=== PATIENT | female | born 2000 | race Caucasian/White ===

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

== ENCOUNTER 2023-08-30 22:24 | Emergency (ER) | payer OTHER, MEDICAID ==
[2023-08-30] MEDS ORDERED: Albuterol 2.5 MG (3 mL) NEB ONE (23:00)
[2023-08-30] MEDS ORDERED: Famotidine 20 MG TAB ONE (23:00)
[2023-08-30] MEDS ORDERED: Mag-Al Plus 1200/1200/120 MG (30 mL) UDCUP ONE ×2 (23:01)
[2023-08-30] MEDS ORDERED: Lidocaine 2% Viscous 100 ML BOTTLE ONE (23:02)
[2023-08-30 23:10] LABS: Bilirubin Negative (Negative); Blood, Urine Negative (Negative); CAUTI Indications for Culture Dysuria,urgency,freq; Clarity Clear (Clear); Glucose, Urine (Dipstick) Negative (Negative); Ketone, Urine Negative (Negative); Leukocyte Negative (Negative); Nitrite Negative (Negative); Protein, Urine (Dipstick) Negative (Neg-Trace); RBC/HPF None Seen HPF (0-3); Specific Gravity, Urine 1.025 (1.005-1.030); Urobilinogen 0.2 mg/dL (Less than 2)
[2023-08-30] MEDS ORDERED: predniSONE 20 MG TAB ONE (23:10)
[2023-08-30 23:11] LABS: Urine Culture Reflex No No
[2023-08-30 23:12] LABS: Pregnancy Test - Urine (BHCG) Negative (Negative); Pregu Control Background? CLEAR/WHITE (CLR/WHITE); Pregu Control Bar Appear? YES (CONTROL BAR); Specific Gravity 1.025 (1.002-1.036)
== END 2023-08-30 23:57 | disposition home or self-care (01) ==
LOC: MADERS 22:24
DX: J45.909 Unspecified asthma, uncomplicated (principal); K59.00 Constipation, unspecified
CPT/HCPCS: 74022; 81001; 81025; J7512; J7611